=== PATIENT | male | born 1970 | race Caucasian/White ===

== ENCOUNTER 2019-06-20 10:13 | Emergency (ER) | payer OTHER ==
[~2019-06-20] VITALS: Ht 185.4 cm; Wt 136.1 kg
[~2019-06-20 10:13] MED LIST: AVALIDE 150/12.1 TAB PO; AVAPRO150 MG PO; CATAFLAM50 MG PO
[2019-06-20] MEDS ORDERED: FORTAMET500 MG (10:51)
== END 2019-06-20 13:58 | disposition home or self-care (01) ==
LOC: ER 10:13
DX: S96.911A Strain of unspecified muscle and tendon at ankle and foot level, right foot, initial encounter (principal); X50.0XXA Overexertion from strenuous movement or load, initial encounter; Y93.89 Activity, other specified; Y92.89 Other specified places as the place of occurrence of the external cause; Y99.8 Other external cause status

== ENCOUNTER 2021-03-29 17:55 | Emergency (ER) | payer OTHER ==
[~2021-03-29] VITALS: Ht 185.4 cm; Wt 136.1 kg
[~2021-03-29 17:55] MED LIST changes: +FORTAMET500 MG
== END 2021-03-29 21:23 | disposition home or self-care (01) ==
LOC: ER 17:55
DX: M75.32 Calcific tendinitis of left shoulder (principal); M25.512 Pain in left shoulder

== ENCOUNTER 2022-06-27 22:43 | Emergency (ER) | payer OTHER ==
[~2022-06-27] VITALS: Ht 185.4 cm; Wt 136.1 kg
[2022-06-27] MEDS ORDERED: GLUMETZA1000 MG PO (22:48)
[2022-06-27] MEDS ORDERED: AVALIDE 300-121 EACH PO (22:48)
[2022-06-27] MEDS ORDERED: GLIMEPIRIDE4 MG (22:48)
[2022-06-27] MEDS ORDERED: LEVO-T50 MCG PO (22:49)
[2022-06-27] MEDS ORDERED: ZOCOR20 MG PO (22:49)
[2022-06-27] MEDS ORDERED: TOPROL XL50 M1 PO (22:49)
== END 2022-06-28 04:54 | disposition home or self-care (01) ==
LOC: ER 22:43
DX: M54.59 Other low back pain (principal)